=== PATIENT | male | born 1995 | race Caucasian/White ===

== ENCOUNTER 2019-06-09 16:02 | Outpatient (CLI) | payer OTHER, SELFPAY ==
--- NOTE | ~2019-06-09 | XR_ITS ---
XR chest 2V DATE: 06/09/2019 16:22 INDICATION: Chest pain TECHNIQUE: PA and lateral views COMPARISON: 02/21/2017 AP and lateral views FINDINGS: Normal heart size. No hilar or mediastinal enlargement. Bilateral hyperinflation. No pulmonary infiltrate or consolidation, pleural effusion or pulmonary vas cular congestion or pneumothorax. Included skeletal structures are unremarkable other than mild scoliosis. IMPRESSION: Bilateral hyperinflation; no active cardiopulmonary disease Reviewed, dictated and finalized at location B.
== END 2019-06-09 16:03 | disposition home or self-care (01) ==
LOC: ANHIMG 16:11
PROVIDERS: PCP Internal Medicine; Visit Provider Nurse Practitioner
DX: R07.9 Chest pain, unspecified (principal); R91.8 Other nonspecific abnormal finding of lung field
CPT/HCPCS: 71046

== ENCOUNTER 2019-06-27 08:35 | Outpatient (CLI) | payer OTHER, SELFPAY ==
--- NOTE | 2019-06-27 08:59 | EST_ITS ---
Patient Info Name: Power Barnes Age: 23 years : 1995 Gender: Male Ht: 75 in Wt: 150 lbs BSA: 1.88 m2 HR: 75 bpm BP: 168 / 103 mmHg Heart Rhythm: Sinus Rhythm Technical Quality: Good Exam Date: 06/27/2019 9:14 AM Exam Location: [facility] Patient Status: Outpatient Admit Date: 06/27/2019 Staff Ordering Physician: Johnna Monge NP Sheet Metal Fabricator: Robin Boothe RDCS, RT Attending Provider: LUIS BUTLER DO Referring Physician: Saleem HARKINS; Exercise Technologist: Osmani Cruz RDCS Exam Type: CA stress echo Study Info Indications R07.9 - Chest pain, unspecified Treadmill exercise stress echocardiogram is performed. History/Risk Factors Chest pain. Summary 1. 1. Negative Trung exercise stress test for ischemic ST changes by ECG criteria. 2. 2. Good functional capacity, achieving 12 METs of workload. 3. 3. Baseline hypertension. 4. 4. Appropriate HR response to exercise. 5. 5. Appropriate HR recovery at 1 minute post exercise. 6. 6. Negative stress echocardiogram for ischemia by wall motion analysis. 7. 7. Patient informed of the above results. Stress Echo Findings Left Ventricle Appropriate increase in LV endocardial thickening with systole. Appropriate augmentation of contractility with systole. No wall motion abnormality. Left Ventricle Normal LV systolic function, no wall motion abnormality. Protocol: Trung Stress ECG Details Stage: REST Duration (min): 0 min : 28 sec Speed (mph): 0.0 Grade (%): 0 HR (bpm): 82 SBP (mmHg): --- DBP (mmHg): --- METS: --- Stage: REST Duration (min): 13 min : 37 sec Speed (mph): 0.0 Grade (%): 0 HR (bpm): 105 SBP (mmHg): 168 DBP (mmHg): 103 METS: --- Stage: STAGE 1 Duration (min): 1 min : 0 sec Speed (mph): 1.7 Grade (%): 10 HR (bpm): 118 SBP (mmHg): 168 DBP (mmHg): 103 METS: --- Stage: STAGE 1 Duration (min): 2 min : 0 sec Speed (mph): 1.7 Grade (%): 10 HR (bpm): 118 SBP (mmHg): 168 DBP (mmHg): 103 METS: --- Stage: STAGE 1 Duration (min): 3 min : 0 sec Speed (mph): 1.7 Grade (%): 10 HR (bpm): 120 SBP (mmHg): 164 DBP (mmHg): 69 METS: --- Stage: STAGE 2 Duration (min): 1 min : 0 sec Speed (mph): 2.5 Grade (%): 12 HR (bpm): 125 SBP (mmHg): 164 DBP (mmHg): 69 METS: --- Stage: STAGE 2 Duration (min): 2 min : 0 sec Speed (mph): 2.5 Grade (%): 12 HR (bpm): 125 SBP (mmHg): 174 DBP (mmHg): 70 METS: --- Stage: STAGE 2 Duration (min): 3 min : 0 sec Speed (mph): 2.5 Grade (%): 12 HR (bpm): 133 SBP (mmHg): 174 DBP (mmHg): 70 METS: --- Stage: STAGE 3 Duration (min): 1 min : 0 sec Speed (mph): 3.4 Grade (%): 14 HR (bpm): 140 SBP (mmHg): 155 DBP (mmHg): 69 METS: --- Stage: STAGE 3 Duration (min): 2 min : 0 sec Speed (mph): 3.4 Grade (%): 14 HR (bpm): 149 SBP (mmHg): 155 DBP (mmHg): 69
== END 2019-06-27 08:36 | disposition home or self-care (01) ==
PROVIDERS: PCP Internal Medicine; Visit Provider Nurse Practitioner
DX: R07.9 Chest pain, unspecified (principal)
CPT/HCPCS: 93351

== ENCOUNTER 2019-08-10 14:48 | Emergency (ER) | payer OTHER, SELFPAY ==
--- NOTE | ~2019-08-10 | XR_ITS ---
EXAMINATION: XR chest 1V portable INDICATION: Fever TECHNIQUE: Portable AP chest at 1613 hours COMPARISON: 06/09/2019 FINDINGS: The lungs are free of acute opacities. There is no pleural effusion or pneumothorax. The ca rdiomediastinal silhouette is normal. The visualized bones and soft tissues are unremarkable. IMPRESSION: 1. No acute cardiopulmonary abnormality. Reviewed, dictated and finalized at location A.
[2019-08-10 14:50] VITALS: BP 112/89; PULSE 98; RESP 20; TEMP 38.6; O2SAT 98
[2019-08-10 15:12] LABS: Hematocrit 42.3 % (42.0-52.0); Hemoglobin 14.5 g/dL (14.0-18.0); Mean Corpuscular HGB Conc 34.3 g/dl (32-36); Mean Corpuscular Volume 90.4 fl (80-100); Mean Platelet Volume 11.7 fl (7.4-10.4); Platelet Count Result 188 k/mm3 (150-375); Red Blood Count 4.68 M/mm3 (4.6-6.20); Red Cell Distribution Width 12.1 % (11.5-14.5); White Blood Count 22.2 K/mm3 (4.5-10.0)
--- NOTE | 2019-08-10 15:12 | ED.GENADULT ---
HPI - General Adult General Chief complaint: Nausea/Vomiting/Diarrhea <Eriberto Bourgeois PA-C - Last Filed: 08/10/19 16:39> Stated complaint: n/v <Eriberto Bourgeois PA-C - Last Filed: 08/10/19 16:39> Time Seen by Provider: 08/10/19 14:54 <Eriberto Bourgeois PA-C - Last Filed: 08/10/19 16:39> Source: patient and family <JUDY Guerrier Last Filed: 08/10/19 16:39> Mode of arrival: ambulatory <JUDY Guerrier Last Filed: 08/10/19 16:39> Limitations: no limitations <JUDY Guerrier Last Filed: 08/10/19 16:39> History of Present Illness HPI narrative: Patient is a 23-year-old male who presents to emergency department for evaluation of fever chills body aches for the last several days noting sore throat has now developed some nausea and vomiting today patient notes that he did consume alcohol last night patient denies sick contacts or similar occurrence in the past some NyQuil this morning with minimal improvement. Patient notes headache sore throat and generalized body aches <Eriberto Bourgeois PA-C - Last Filed: 08/10/19 16:39> Related Data Allergies/adverse reactions: Allergies Allergy/AdvReac Type Severity Reaction Status Date / Time No Known Drug Allergies Allergy Mild Verified 02/21/17 07:15 <Eriberto Bourgeois PA-C - Last Filed: 08/10/19 16:39> Review of Systems Review of Systems: All systems reviewed & are unremarkable except as noted in HPI and below <Eriberto Bourgeois PA-C - Last Filed: 08/10/19 16:39> [facility] Family History Family History: Family History (Updated 11/18/18 @ 11:47 by DOCTOR UNKNOWN) Mother Patient's mother is in good health Father Patient's father is in good health Grandparent Family history of cardiovascular disease Family history of lung cancer <Eriberto Bourgeois PA-C - Last Filed: 08/10/19 16:39> Social History Social History: Social History Smoking packs per day: 1 Smoking cigarettes per day: 20.0 Smoking status: Current every day smoker Alcohol intake: current <Eriberto Bourgeois PA-C - Last Filed: 08/10/19 16:39> Exam Narrative: Exam Narrative: GENERAL: Ill-appearing, well-nourished, and in no acute distress. HEAD: Normocephalic, atraumatic. EYES: PERRLA and EOMI. ENT: Nares clear, no rhinorrhea or epistaxis. Mucous membranes moist. Oropharynx with tonsillar hypertrophy and without exudate or other lesions. Bilateral TMs pearly de la rosa nonbulging. Uvula midline no trismus or drooling NECK: Supple. Anterior adenopathy noted CHEST: Clear to auscultation. No respiratory distress. No wheezes rales or rhonchi HEART: Regular rate and rhythm. No murmur heard. Normal peripheral pulses. ABDOMEN: Soft, nontender, nondistended EXTREMITIES: Normal range of motion. No edema. SKIN: Warm, dry, no rash. NEURO: No focal deficits. Alert and oriented x3. Cranial nerves II through XII grossly intact. No meningismus PSYCH: Normal mood and affect. <Eriberto Bourgeois PA-C - Last Filed: 08/10/19 16:39> Course Course Emergency Course: Patient in the room aware of case findings treatment plan and diagnosis agreeing to follow-up with primary care as instructed. Patient with positive strep pharyngitis in the emergency department was hydrated feeling better with interventions nontoxic-appearing without emesis afebrile. Patient provided with reasons to return <Eriberto Bourgeois PA-C - Last Filed: 08/10/19 16:39> Vital Signs Vital signs: Vital Signs Temperature 101.5 F H 08/10/19 14:50 Pulse Rate 98 08/10/19 14:50 Respiratory Rate 08/10/19 14:50 Blood Pressure 112/89 08/10/19 14:50 Pulse Oximetry 98 08/10/19 14:50 Temperature 101.5 F H 08/10/19 15:26 Pulse Rate 66 08/10/19 17:00 Respiratory Rate 08/10/19 17:00 Blood Pressure 129/67 08/10/19 17:00 Pulse Oximetry 98 08/10/19 17:00 <Eriberto Felipe
[2019-08-10] MEDS: SODIUM CHLORIDE 0.9% IV 1,000 ML 999 ML IV CONT ×2 (15:14→16:16)
[2019-08-10] MEDS: ONDANSETRON INJ 4 MG/2 ML VIAL IV PUSH (15:20)
[2019-08-10] MEDS: FAMOTIDINE 20 MG/2 ML VIAL IV PUSH (15:20)
[2019-08-10 15:23] LABS: Lactic Acid Reflex 0.9 mmol/L (0.7-2.1)
[2019-08-10 15:24] LABS: Alanine Aminotransferase 12 U/L (4-50); Albumin Level 4.7 g/dL (3.5-5.1); Alkaline Phosphatase 87 U/L (38-126); Aspartate Amino Transferase 21 U/L (17-59); Bilirubin,Total 0.6 mg/dL (0.2-1.3); Blood Urea Nitrogen 10 mg/dL (9-20); Calcium 9.4 mg/dL (8.4-10.2); Carbon Dioxide 23 mmol/L (22-30); Chloride 101 mmol/L (98-107); Estimated CRCL calculation 121 ml/min; Estimated Glomerular Filt Rate > 60; Glucose 115 mg/dL (75-110); Lipase 34 U/L (23-300); Potassium 3.6 mmol/L (3.4-5.0); Sodium 133 mmol/L (137-145)
[2019-08-10 15:25] VITALS: BP 118/67; PULSE 74; RESP 12; O2SAT 98
[2019-08-10 15:26] VITALS: PULSE 77; RESP 19; TEMP 38.6; O2SAT 98
[2019-08-10] MEDS: IBUPROFEN IV 800 MG/200 ML 800 MG/200 ML BAG 400 MG IVPB (15:26)
[2019-08-10 15:30] VITALS: PULSE 78; RESP 20; O2SAT 98
[2019-08-10 15:31] VITALS: BP 128/65; PULSE 78; RESP 25; O2SAT 97
[2019-08-10 15:35] LABS: Band Neutrophils Percent 9 % (0-6); Lymphocytes Absolute Manual 2.44 K/mm3 (1.1-4.5); Monocytes Absolute Manual 0.88 K/mm3 (0.1-0.90); Monocytes Percent Manual 4 % (3-9); Neutrophils Absolute Manual 18.87 K/mm3 (1.3-6.7); Neutrophils Percent Manual 76 % (46-73); Total Cells Counted 100
[2019-08-10 15:36] LABS: Platelet Estimate Adequate (Adequate)
[2019-08-10 15:38] LABS: INR 1.2; Prothrombin Time 14.8 Seconds (11.1-14.7)
[2019-08-10 15:39] LABS: Partial Thromboplastin Time 27.4 SECONDS (22.3-36.8)
[2019-08-10 15:53] LABS: CRP 3.2 mg/dL (<1.0)
[2019-08-10 17:00] VITALS: BP 129/67; PULSE 66; RESP 20; O2SAT 98
[2019-08-11 13:36] LABS: SARS-CoV-2 RNA PCR Negative
== END 2019-08-10 17:00 | disposition home or self-care (01) ==
PROVIDERS: Emergency Medicine Emergency Medical Services; Emergency Provider General Practice; PCP Internal Medicine
DX: J02.0 Streptococcal pharyngitis (principal); Z20.828 Contact with and (suspected) exposure to other viral communicable diseases; F17.210 Nicotine dependence, cigarettes, uncomplicated
CPT/HCPCS: 36415; 71045; 80053; 83605; 83690; 85025; 85610; 85730; 86140; 87040; 87635; 87880; 96361; 96365; 96375; 99285; C9803; J0131; J1741; J2405; J7030; U0003